=== PATIENT | male | born 1940 | race Hispanic/Latino ===

== ENCOUNTER 2025-01-09 07:50 | Day surgery (SDC) | payer OTHER ==
[2025-01-09] VITALS (10 sets, daily range): BP systolic 110–126; BP diastolic 72–86; PULSE 61–81; RESP 14–20; TEMP 97.3–98.1
[~2025-01-09] VITALS: Ht 172.7 cm; Wt 81.6 kg
[2025-01-09] MEDS: 0.9%NACL 1000ML 1,000 ML IV ONE (06:01)
[2025-01-09] MEDS ORDERED: TAMS-55 PO (09:07)
[2025-01-09] MEDS ORDERED: FAMO40TA7 PO (09:07)
[2025-01-09] MEDS ORDERED: DEXL30CA3 PO (09:07)
[2025-01-09] MEDS ORDERED: DICY20TA3 PO (09:07)
[2025-01-09] MEDS ORDERED: SACU1TAB7 PO (09:07)
[2025-01-09] MEDS ORDERED: FURO40TA5 PO (09:07)
[2025-01-09] MEDS ORDERED: APIX2.5T PO (09:07)
[2025-01-09] MEDS ORDERED: OMEG100014 PO (09:07)
[2025-01-09] MEDS ORDERED: METO-408 PO (09:07)
== END 2025-01-09 11:53 | disposition home or self-care (01) ==
LOC: DAH 07:50 → ENDO 07:50
PROVIDERS: ATTEND Internal Medicine Gastroenterology
DX: K52.832 Lymphocytic colitis (principal); K57.30 Diverticulosis of large intestine without perforation or abscess without bleeding; K52.3 Indeterminate colitis; K29.40 Chronic atrophic gastritis without bleeding; I51.9 Heart disease, unspecified; F32.A Depression, unspecified; K44.9 Diaphragmatic hernia without obstruction or gangrene; Z95.0 Presence of cardiac pacemaker; Z98.890 Other specified postprocedural states; Z95.1 Presence of aortocoronary bypass graft; Z79.899 Other long term (current) drug therapy
CPT/HCPCS: 45380; J7030; J2704; A4620; A4215 ×2; A4223; A7002; A4222; A4221; A4663; A4606; J3490